=== PATIENT | female | born 1995 | race Caucasian/White ===

== ENCOUNTER 2017-04-08 12:09 | Emergency (ER) | payer OTHER, SELFPAY ==
[2017-04-08 12:30] VITALS: BP 118/59; PULSE 94; RESP 20; TEMP 36.9; O2SAT 99; BMI 20.1
[2017-04-08 12:51] LABS: Apearance,Urine Cloudy (Clear); Color,Urine Yellow (Yellow); PH,Urine 5.5 (5.0-8.5); Specific Gravity, Urine >= 1.030 (1.005-1.030)
[2017-04-08 12:52] LABS: Bilirubin,Urine Negative (Negative); Blood, Urine 1+ (Negative); Glucose,Urine (UA) Negative (Negative); Ketones,Urine Negative (Negative); Protein,Urine 2+ (Negative); UTC Leukocyte Esterase,Urine 1+ (Negative); UTC Nitrate,Urine Negative (Negative); Urobilinogen,Urine 0.2 EU/dl (0.2)
--- NOTE | 2017-04-08 13:00 | HMH.EDUTC ---
[facility] [place] Clinical Impression: Dysuria, History of sexually transmitted disease Disposition: Home, Self-Care Condition on Discharge: Good Instructions: Informing Partners of STI Patients Reduces Ongoing and Recurrent Sexually T, DI for Chlamydia, DI for Urinary Tract Infection (UTI) Additional Instructions: * increase fluids, Water and NOT soda or tea * Start antibiotic for UTI immediately and be sure to take as ordered for the FULL length of time although you should start to see improvement over the next 48 hours. * We administered the necessary antibiotics for possibly sexually transmitted diseases * pyridium as needed. Remember this will turn your urine ORANGE, this is normal but will stain whatever it gets on. this includes tears and contacts. Try not to wear contacts due to risk of staining orange. * You should not need the pyridium longer than 48 hours. If so, follow up with primary care to review urine culture and ensure antibiotic is adequate * Be SURE to follow up anytime for new or worsening symptoms, AND in 48-72 hours for urine culture results AND in 10-14 days to repeat UA and ensure infection resolved and blood no longer present. * Be sure to let Dr. Hall know we sent urine culture so they can request records and ensure you are on the appropriate antibiotic if you are not getting better or getting worse!!! * Avoid sex for 7 days to prevent reinfection Notify any partners within the last 60 days and they should all be tested/treated * Rescreen in 3 months Prescriptions: Nitrofurantoin Monohyd/M-Cryst [Macrobid 100 mg Capsule] 100 mg PO BID #20 cap Referrals: Nile Hall MD [Staff Physician] - (Follow up with Dr. Hall as we discussed. In 48-72 hours for culture results AND in 5-7 days for STD urine test results AND immediately for new or worsening symptoms. ) Time of Disposition: 14:21 Medical Decision Making Vital Signs: 04/08/17 12:30 04/08/17 14:25 Temperature 98.4 F 98.4 F Temperature Source Temporal Artery Scan Pulse Rate 94 H Pulse Rate [Radial] 94 H Respiratory Rate 20 20 Blood Pressure 118/59 Blood Pressure [Right Arm] 118/59 Blood Pressure Mean [Right Arm] 78 Blood Pressure Source [Right Arm] Automatic Cuff Blood Pressure Position [Right Arm] Sitting 02 Sat by Pulse Oximetry 99 Oxygen Delivery Method Room Air - Lab Data Lab results reviewed: Yes: I reviewed the patient's lab results. Lab Results 04/08/17 12:40: Urine Color Yellow, Urine Appearance Cloudy, Urine pH 5.5, Ur Specific [place] >= 1.030, Urine Protein 2+, Urine Glucose (UA) Negative, Urine Ketones Negative, Urine Blood 1+, Urine Nitrate Negative, Urine Bilirubin Negative, Urine Urobilinogen 0.2, Ur Leukocyte Esterase 1+ A Orders (Tests/Meds): ED MEDICATIONS Discontinued Medications Generic Name Dose Route Start Last Admin Trade Name Bianca PRN Reason Stop Dose Admin Azithromycin 1,000 mg 04/08/17 13:26 04/08/17 13:53 Zithromax 250mg Tablet PO 04/08/17 13:27 1,000 mg ONCE ONE Administration Protocol Ceftriaxone Sodium 1 gm 04/08/17 13:26 04/08/17 13:54 Rocephin 1gm Vial IM 04/08/17 13:27 1 gm ONCE ONE Administration Lidocaine HCl 0 ml 04/08/17 13:26 04/08/17 13:54 Lidocaine 1% 10ml Mdv IM 04/08/17 13:27 2.1 ml ONCE ONE Administration - Physician Consults Physician Consulted: Dr. Hall, HELP DESK CONSULTANT Time: 13:10 Reason -: Pt condition Comment/Response: Discussed PMHx, HPI, u/a results. Would like pt treated w/ rocephin, azithromycin and either macrobid or bactrim. Would like GC/Chlamydia urine and urine culture sent. Swabs not necessary. Additional Consult: Barrie Lira Time: 13:20 Reason -: Other (dosing recommendation) Comment/Response: Discussed PMHx, HPI, current results and discussion with Dr. Hall. Suggest 1g rocephin IM rather than 250mg, 1g azithromycin PO and then antibiotic of choice for UTI - Teofilo Inquiry Pt receiving controlled substance: No
[2017-04-08 14:25] VITALS: BP 118/59; PULSE 94; RESP 20; TEMP 36.9; O2SAT 99
[2017-04-12 06:22] LABS: Neisseria gonorrhoeae, NAA Negative (Negative)
== END 2017-04-08 14:28 | disposition home or self-care (01) ==
PROVIDERS: Emergency Provider Nurse Practitioner Family; Family Provider Family Medicine
DX: R30.0 Dysuria (principal); Z86.19 Personal history of other infectious and parasitic diseases
CPT/HCPCS: 81003; 87086; 87088; 87186; 87491; 87591; 96372; 99201

== ENCOUNTER → 2019-02-02 09:59 | Outpatient (CLI) | payer OTHER, SELFPAY ==
[2019-02-02 13:11] LABS: HCG,Quantitative 322 mIU/mL
== END ==
PROVIDERS: Visit Provider Nurse Practitioner Obstetrics & Gynecology
DX: Z34.90 Encounter for supervision of normal pregnancy, unspecified, unspecified trimester (principal)
CPT/HCPCS: 36415; 84702

== ENCOUNTER → 2019-03-08 13:17 | Outpatient (CLI) | payer OTHER, MEDICAID, SELFPAY ==
--- NOTE | 2019-03-08 13:18 | US_ITS ---
PROCEDURE: US OB TRANSVAGINAL CLINICAL INDICATION: US T/V OB Dates COMPARISON: TVP US TRANSVAGINAL PREG from 12/27/2014 FINDINGS: An intrauterine gestational sac is present with a pole with a crown-rump length of 1.91cm correlating to gestational age of 8weeks 4days. heart tones are present with an FHR of 174bpm. Yolk sac is noted. There is a small curvilinear area of decreased echogenicity deep to the gestational sac anteriorly and superiorly and could represent a small amount of subchorionic blood. Unremarkable adnexa. IMPRESSION: Live intrauterine gestation with an average ultrasound age of 8 weeks 4 days. Small amount fluid echogenicity noted at the gestational sac area which could represent a small amount subchorionic hemorrhage. Follow-up suggested to confirm resolution. Estimated due date by Ultrasound is 10/14/2019 Dictated by: Laz Drummond MD 03/08/2019 16:30 Electronically signed by Laz Drummond MD in [place] 03/08/2019 16:30
== END ==
PROVIDERS: PCP Emergency Medicine; Visit Provider Nurse Practitioner Obstetrics & Gynecology
DX: O26.841 Uterine size-date discrepancy, first trimester (principal)
CPT/HCPCS: 76817

== ENCOUNTER → 2019-04-19 11:28 | Outpatient (CLI) | payer OTHER, SELFPAY ==
[2019-04-19 12:25] LABS: Basophils % 0.3 % (0.1-2.0); Eosinophils % 0.4 % (0.1-12.0); Hematocrit 35.2 % (37.0-47.0); Lymphocytes # 1.2 K/mm3 (0.7-4.5); Lymphocytes % 14.6 % (10-50); Mean Corpuscular HGB Conc 34.2 g/dL (31.8-35.4); Mean Corpuscular Hemoglobin 29.7 pg (27.0-31.2); Mean Corpuscular Volume 87.1 fl (81-99); Mean Platelet Volume 7.9 fl (7.4-10.4); Monocytes # 0.3 K/mm3 (0.1-1.0); Monocytes % 3.5 % (1.7-9.3); Neutrophils # 6.4 K/mm3 (1.8-7.8); Neutrophils % 81.2 % (37.0-80.0); Platelet Count 252 K/mm3 (142-424); Red Blood Count 4.04 M/mm3 (4.20-5.40); Red Cell Distribution Width 14.1 % (11.5-17.5); White Blood Count 7.9 K/mm3 (4.8-10.8)
[2019-04-20 07:10] LABS: HIV Screen 4th Generation wRfx Non Reactive (Non Reactive)
[2019-04-20 10:51] LABS: Hepatitis B Surface Antigen Negative (Negative); Hepatitis C Antibody <0.1 s/co ratio (0.0-0.9); Rapid Plasma Reagin Ab Titer Non Reactive (NonRea<1:1); Rubella Antibodies, IgG <0.90 index (Immune >0.99)
== END ==
PROVIDERS: Visit Provider Nurse Practitioner Obstetrics & Gynecology
DX: Z34.90 Encounter for supervision of normal pregnancy, unspecified, unspecified trimester (principal)
CPT/HCPCS: 36415; 85025; 86592; 86703; 86762; 86850; 87340; 87380; G0432

== ENCOUNTER → 2019-05-24 08:21 | Outpatient (CLI) | payer OTHER, SELFPAY ==
--- NOTE | 2019-05-24 08:23 | US_ITS ---
PROCEDURE: US OB /MATERNAL DETAIL CLINICAL INDICATION: 20 wk gestation Anatomy exam COMPARISON: US OB TRANSVAGINAL from 03/08/2019 FINDINGS: There is a single live fetus present which is in the cephalic presentation. heart body motion noted. The placenta is anterior and grade 1. Cervix is closed measuring 3 cm transabdominal. Complete survey performed and was unremarkable on the submitted images as in PACS. No discrete anomalies identified on survey imaging by technologist. Active fetus. Three-vessel cord with satisfactory umbilical cord insertion. 4- chamber heart noted. Survey of brain & ventricles Unremarkable. Face and neck survey unremarkable. Diaphragm and chest views unremarkable. Abdomen: Both kidneys noted and unremarkable. Stomach noted and satisfactory. Spine: Survey of the spine satisfactory with no anomalies identified nor imaged. Both arms and legs noted. Amniotic Fluid: Adequate. Maternal adnexa: No significant findings. Measurements: Average ultrasound age 19weeks 1day. Gestational Age 19 weeks 4 days Estimated due date by ultrasound age 0810/17/2019. Estimated weight 290g BPD = 18weeks 6days OFD = 19 weeks 5 days HC = 18weeks 4days AC = 20weeks 1day FL = 19weeks Growth Percentile= 35% Heart Rate = 132bpm Cerebellum = 19weeks 3days Humerus = 19weeks 6days HC/AC is 1.06 CI is 0.74 FL/BPD is 0.69 FL/AC is 0.2 IMPRESSION: There is a single live fetus in cephalic presentation with an average ultrasound age 19 weeks 1 day with no obvious anomalies. Please see above for detail Dictated by: Laz Drummond MD 05/24/2019 14:29 Electronically signed by Laz Drummond MD in [place] 05/24/2019 14:29
== END ==
PROVIDERS: PCP Emergency Medicine; Visit Provider Nurse Practitioner Obstetrics & Gynecology
DX: Z36.0 Encounter for antenatal screening for chromosomal anomalies (principal)
CPT/HCPCS: 76811

== ENCOUNTER → 2019-07-11 11:29 | Outpatient (CLI) | payer OTHER, SELFPAY ==
[2019-07-11 12:10] LABS: Glucose,Fasting 91 mg/dl (74-100)
[2019-07-11 14:28] LABS: Glucose 1 Hour 131 mg/dL (74-100)
== END ==
PROVIDERS: Visit Provider Nurse Practitioner Obstetrics & Gynecology
DX: Z34.90 Encounter for supervision of normal pregnancy, unspecified, unspecified trimester (principal)
CPT/HCPCS: 36415; 82951

== ENCOUNTER 2019-07-20 19:30 | Outpatient (CLI) | payer OTHER, SELFPAY ==
[2019-07-20 19:54] VITALS: BP 111/67; PULSE 104; RESP 18; TEMP 36.8; O2SAT 99; BMI 21.4
[2019-07-20 20:41] LABS: Microscopic, Urine URINE MICROSCOPIC (MICROSCOPIC)
[2019-07-20 20:45] LABS: Appearance,Urine SL CLOUDY (Clear); Bilirubin,Urine Negative (Negative); Blood, Urine TRACE-L (Negative); Color,Urine YELLOW (Yellow); Glucose,Urine (UA) Negative (Negative); Ketones,Urine Negative (Negative); Leukocyte Esterase,Urine 3+ (Negative); Nitrate,Urine Negative (Negative); Protein,Urine Negative (Negative)
[2019-07-20 20:48] LABS: Squamous Epithelial Cell,Urine 20-50 #/hpf (0-5); WBC,Urine 50-100 #/hpf (0-3)
[2019-07-20 20:54] LABS: Barbiturates Screen,Urine Negative ng/ml (<200)
[2019-07-20 20:55] LABS: Benzodiazepines Screen,Urine Negative ng/ml (<200)
[2019-07-20 20:56] LABS: Amphetamine/Metha Screen,Urine Negative ng/ml (<1000); Cannabinoid Screen,Urine Negative ng/ml (<50)
[2019-07-20 20:57] LABS: Cocaine Screen,Urine Negative ng/ml (<300)
[2019-07-20 20:58] LABS: Methadone Screen,Urine Negative ng/ml (<300); Opiate Screen,Urine Negative ng/ml (<300)
[2019-07-20 20:59] LABS: Phencyclidine Screen,Urine Negative ng/ml (<25)
[2019-07-20 21:02] LABS: Fetal Membrane Rupture (Rapid) Negative (Negative)
== END 2019-07-20 21:15 | disposition home or self-care (01) ==
LOC: OBOUT 19:34 → OB 19:36
PROVIDERS: PCP Nurse Practitioner Obstetrics & Gynecology; Visit Provider Obstetrics & Gynecology
DX: O47.03 False labor before 37 completed weeks of gestation, third trimester (principal); Z3A.28 28 weeks gestation of pregnancy
CPT/HCPCS: 59025; 80305; 81001; 84112; 87086; G0463

== ENCOUNTER 2019-09-07 00:31 | Outpatient (CLI) | payer OTHER, SELFPAY ==
[2019-09-07 00:44] VITALS: BMI 24.1
[2019-09-07 00:51] LABS: Appearance,Urine CLEAR (Clear); Bilirubin,Urine Negative (Negative); Blood, Urine Negative (Negative); Color,Urine DK YELLOW (Yellow); Glucose,Urine (UA) Negative (Negative); Ketones,Urine TRACE (Negative); Leukocyte Esterase,Urine TRACE (Negative); Microscopic, Urine URINE MICROSCOPIC (MICROSCOPIC); Nitrate,Urine Negative (Negative); Protein,Urine TRACE (Negative); Specific Gravity, Urine 1.025 (1.005-1.030); Urobilinogen,Urine >=8.0 EU/dl (0.2)
[2019-09-07 00:56] VITALS: BP 124/70; PULSE 86; RESP 18; TEMP 36.9; O2SAT 98; BMI 24.1
[2019-09-07 00:58] LABS: Bacteria,Urine 1+ /lpf; Mucus,Urine 1+ /lpf
[2019-09-07 02:06] LABS: Amphetamine/Metha Screen,Urine Negative ng/ml (<1000)
[2019-09-07 02:07] LABS: Barbiturates Screen,Urine Negative ng/ml (<200)
[2019-09-07 02:08] LABS: Benzodiazepines Screen,Urine Negative ng/ml (<200)
[2019-09-07 02:09] LABS: Cannabinoid Screen,Urine Negative ng/ml (<50)
[2019-09-07 02:10] LABS: Cocaine Screen,Urine Negative ng/ml (<300); Methadone Screen,Urine Negative ng/ml (<300)
[2019-09-07 02:11] LABS: Opiate Screen,Urine Negative ng/ml (<300)
[2019-09-07 02:12] LABS: Phencyclidine Screen,Urine Negative ng/ml (<25)
== END 2019-09-07 02:09 | disposition home or self-care (01) ==
LOC: OBOUT 00:33 → OB 00:34
PROVIDERS: PCP Emergency Medicine; Referring Provider Nurse Practitioner Obstetrics & Gynecology; Visit Provider Obstetrics & Gynecology
DX: O26.893 Other specified pregnancy related conditions, third trimester (principal); Z3A.35 35 weeks gestation of pregnancy; R60.0 Localized edema; R20.0 Anesthesia of skin
CPT/HCPCS: 59025; 80305; 81001; G0463

== ENCOUNTER 2019-09-10 13:37 | Outpatient (CLI) | payer OTHER, SELFPAY ==
[2019-09-10 13:45] VITALS: BP 116/74; PULSE 90; RESP 17; TEMP 36.9; O2SAT 99; BMI 24.7
[2019-09-10 13:54] VITALS: BMI 24.7
[2019-09-10 14:20] LABS: Microscopic, Urine URINE MICROSCOPIC (MICROSCOPIC)
[2019-09-10 14:27] LABS: Appearance,Urine CLEAR (Clear); Blood, Urine Negative (Negative); Color,Urine YELLOW (Yellow); Glucose,Urine (UA) Negative (Negative); Ketones,Urine 1+ (Negative); Leukocyte Esterase,Urine TRACE (Negative); Nitrate,Urine Negative (Negative); Protein,Urine TRACE (Negative)
[2019-09-10 14:41] LABS: Opiate Screen,Urine Negative ng/ml (<300)
[2019-09-10 14:42] LABS: Phencyclidine Screen,Urine Negative ng/ml (<25)
[2019-09-10 14:45] LABS: Amphetamine/Metha Screen,Urine Negative ng/ml (<1000)
[2019-09-10 14:46] LABS: Barbiturates Screen,Urine Negative ng/ml (<200); Benzodiazepines Screen,Urine Negative ng/ml (<200)
[2019-09-10 14:47] LABS: Bilirubin,Urine Negative (Negative); Cannabinoid Screen,Urine Negative ng/ml (<50); Cocaine Screen,Urine Negative ng/ml (<300)
[2019-09-10 14:48] LABS: Methadone Screen,Urine Negative ng/ml (<300)
[2019-09-10 14:58] LABS: Bacteria,Urine 1+ /lpf; Squamous Epithelial Cell,Urine 50-100 #/hpf (0-5); WBC,Urine Occasional #/hpf (0-3)
== END 2019-09-10 17:05 | disposition home or self-care (01) ==
LOC: OBOUT 13:41 → OB 13:45
PROVIDERS: PCP Emergency Medicine; Visit Provider Nurse Practitioner Obstetrics & Gynecology
DX: O47.03 False labor before 37 completed weeks of gestation, third trimester (principal); Z3A.35 35 weeks gestation of pregnancy
CPT/HCPCS: 59025; 80305; 81001; 96360; 96361; 96372

== ENCOUNTER 2019-09-14 16:34 | Outpatient (CLI) | payer OTHER, SELFPAY ==
[2019-09-14 16:40] VITALS: BMI 25.4
[2019-09-14 16:59] LABS: Microscopic, Urine URINE MICROSCOPIC (MICROSCOPIC)
[2019-09-14 17:00] LABS: Appearance,Urine CLEAR (Clear); Blood, Urine Negative (Negative); Color,Urine DK YELLOW (Yellow); Glucose,Urine (UA) Negative (Negative); Ketones,Urine 2+ (Negative); Leukocyte Esterase,Urine 1+ (Negative); Nitrate,Urine Negative (Negative); Protein,Urine TRACE (Negative); Specific Gravity, Urine >= 1.030 (1.005-1.030); Urobilinogen,Urine >=8.0 EU/dl (0.2)
[2019-09-14 17:01] LABS: Bilirubin,Urine Negative (Negative)
[2019-09-14 17:06] VITALS: BP 133/83; PULSE 91; RESP 20; TEMP 36.9; O2SAT 99; BMI 25.4
[2019-09-14 17:12] LABS: Benzodiazepines Screen,Urine Negative ng/ml (<200)
[2019-09-14 17:13] LABS: Amphetamine/Metha Screen,Urine Negative ng/ml (<1000)
[2019-09-14 17:14] LABS: Barbiturates Screen,Urine Negative ng/ml (<200); Cannabinoid Screen,Urine Negative ng/ml (<50)
[2019-09-14 17:15] LABS: Cocaine Screen,Urine Negative ng/ml (<300); Methadone Screen,Urine Negative ng/ml (<300)
[2019-09-14 17:16] VITALS: BP 133/83; PULSE 91; RESP 20; TEMP 36.9; O2SAT 99
[2019-09-14 17:16] LABS: Amorphous Sediment,Urine 1+ /lpf; Opiate Screen,Urine Negative ng/ml (<300); RBC,Urine Occasional #/hpf (0-3)
[2019-09-14 17:17] LABS: Phencyclidine Screen,Urine Negative ng/ml (<25)
[2019-09-14 17:36] LABS: Fetal Membrane Rupture (Rapid) Negative (Negative)
== END 2019-09-14 18:06 | disposition home or self-care (01) ==
LOC: OBOUT 16:35 → OB 16:37
PROVIDERS: Obstetrics & Gynecology; PCP Emergency Medicine; Visit Provider Nurse Practitioner Obstetrics & Gynecology
DX: O47.03 False labor before 37 completed weeks of gestation, third trimester (principal); Z3A.36 36 weeks gestation of pregnancy; R60.0 Localized edema
CPT/HCPCS: 59025; 80305; 81001; 84112; 87086; G0463

== ENCOUNTER 2019-09-18 20:37 | Inpatient (IN) | payer OTHER, MEDICAID, SELFPAY ==
[2019-09-18 19:27] VITALS: BMI 25.9
[2019-09-18 19:37] LABS: Microscopic, Urine URINE MICROSCOPIC (MICROSCOPIC)
[2019-09-18 19:42] LABS: Appearance,Urine CLEAR (Clear); Blood, Urine Negative (Negative); Color,Urine YELLOW (Yellow); Glucose,Urine (UA) Negative (Negative); Ketones,Urine TRACE (Negative); Leukocyte Esterase,Urine Negative (Negative); Nitrate,Urine Negative (Negative); Protein,Urine 2+ (Negative); Urobilinogen,Urine >=8.0 EU/dl (0.2)
[2019-09-18 19:47] LABS: Bilirubin,Urine Negative (Negative)
[2019-09-18 19:57] LABS: Amphetamine/Metha Screen,Urine Negative ng/ml (<1000); Barbiturates Screen,Urine Negative ng/ml (<200)
[2019-09-18 19:58] LABS: Benzodiazepines Screen,Urine Negative ng/ml (<200)
[2019-09-18 19:59] LABS: Cannabinoid Screen,Urine Negative ng/ml (<50); Cocaine Screen,Urine Negative ng/ml (<300)
[2019-09-18 20:00] LABS: Methadone Screen,Urine Negative ng/ml (<300); Opiate Screen,Urine Negative ng/ml (<300)
[2019-09-18 20:01] VITALS: BP 126/71; PULSE 88; RESP 17; TEMP 37.2; O2SAT 98; BMI 25.9
[2019-09-18 20:01] LABS: Phencyclidine Screen,Urine Negative ng/ml (<25)
[2019-09-18 20:07] LABS: Fetal Membrane Rupture (Rapid) Positive (Negative)
[2019-09-18 20:34] LABS: Bacteria,Urine 1+ /lpf
[2019-09-18 20:36] LABS: Basophils % 0.3 % (0.1-2.0); Eosinophils # 0.1 K/mm3 (0.0-0.4); Eosinophils % 0.6 % (0.1-12.0); Hemoglobin 8.7 g/dL (12.2-16.2); Lymphocytes # 2.4 K/mm3 (0.7-4.5); Lymphocytes % 20.2 % (10-50); Mean Corpuscular HGB Conc 32.3 g/dL (31.8-35.4); Mean Corpuscular Volume 68.3 fl (81-99); Mean Platelet Volume 9.3 fl (7.4-10.4); Monocytes # 0.6 K/mm3 (0.1-1.0); Monocytes % 4.8 % (1.7-9.3); Platelet Count 229 K/mm3 (142-424); Red Blood Count 3.95 M/mm3 (4.20-5.40); Red Cell Distribution Width 16.8 % (11.5-17.5); White Blood Count 12.1 K/mm3 (4.8-10.8)
[2019-09-18 20:43] LABS: Chloride 104 mmol/L (98-107); Potassium 3.4 mmoL/L (3.5-5.1); Sodium 138 mmol/L (136-145)
--- NOTE | 2019-09-18 20:43 | HMH.OBAPHP ---
OB - H&P: HPI Antepartum - History of Present Illness Chief complaint: Ruptured membranes History of present illness: She is a 23-year-old 3 para 1 aborta 1 who is 36 and 5 weeks gestational age. She ruptured membranes at home at around 6:30 PM according to the patient. AmniSure was positive. She was scheduled for a repeat section. - History of Present Criteria for establishing EDC:: LMP confirmed by 1st trimester US care: good care Ultrasounds: normal 1st trimester US, normal mid trimester US Obstetrical complications: labor Medical complications: none HMH History Medical History: Reports:: Anxiety Denies:: Cancer, Diabetes Mellitus Type 1, Diabetes Mellitus Type 2, Hypertension, MRSA *Have you ever received a pneumonia vaccine?: No *Have you received a flu vaccine this season?: No Other Surgeries: Yes: Amputation: No Fractures: No - *Social History Smoking Status: Never smoker Alcohol Intake: never Substance Use Type: denies use *Occupational Status:: unemployed Housing: house *Travel in the last 8 weeks: None - Psychiatric History Pschychiatric History:: Reports:: Anxiety Family Hx:: No significant family history Para: 1 Review of Systems - Review of Systems Review of systems:: pertinent systems reviewed and negative unless documented below Meds Home Medications Medication Instructions Recorded Confirmed Type Pnv No.153/FA/Om3/Dha/Epa/Fish 2 tab PO DAILY 09/14/19 09/14/19 History [ Gummies] RX: Ferrous Sulfate 325 mg PO DAILY 09/14/19 09/14/19 History Allergies Allergy/AdvReac Type Severity Reaction Status Date / Time No Known Allergies Allergy Verified 09/04/19 09:03 OB - H&P: Exam - Physical Exam Vital signs: Temp Pulse Resp BP Pulse Ox 98.9 F 88 17 126/71 98 09/18/19 20:01 09/18/19 20:01 09/18/19 20:01 09/18/19 20:01 09/18/19 20:01 - Constitutional no acute distress - Routine HEENT Exam Head: Present: normocephalic Eye: Present: EOMI, PERRL ENT: Present: mucous membranes moist - Routine Neck Exam Present: supple, full ROM - Routine Respiratory Exam Absent: accessory muscle use (good air entry bilaterally), respiratory distress, wheezes, crackles - Routine Cardiovascular Exam Present: RRR. Absent: murmur - Routine Abdominal Exam Present: soft, normoactive bowel sounds. Absent: tenderness, distended, guarding - Routine Rectal Exam Patient deferred: visual exam, digital exam - Routine Exam Patient deferred: external exam, groin exam, perineal exam - Routine Extremities Exam Present: full ROM. Absent: cyanosis, edema - Routine Skin Exam Present: intact. Absent: cyanosis - Routine Neurological Exam Present: alert, oriented X3 - Routine Psychiatric Exam Present: normal affect OB - Results - Labs Labs: Short CBC 09/18/19 Range/Units 20:28 WBC 12.1 H (4.8-10.8) K/mm3 Hgb 8.7 L (12.2-16.2) g/dL Hct 27.0 L (37.0-47.0) % Plt Count 229 (142-424) K/mm3 Urine 09/18/19 Range/Units 19:29 Urine Color Yellow (Yellow) Urine Appearance Clear (Clear) Urine pH 7.0 (5.0-8.5) Ur Specific [place] 1.020 (1.005-1.030) Urine Protein 2+ (Negative) Urine Glucose (UA) Negative (Negative) OB - A/P Antepartum (1) premature rupture of membranes Current visit: Yes Status: Acute (2) Previous section Current visit: Yes Status: Acute (3) Delivery by section of full-term infant Current visit: Yes Status: Acute - Additional Plan Planning to breastfeed?: Yes Plan: other Additional Information:: She has come in with ruptured membranes that was confirmed with AmniSure. She is leaking copious fluid. Her cervix which is 1 cm. She was scheduled for a repeat section at 39 weeks. We will go ahead and deliver her by section this evening.
[2019-09-18 20:46] LABS: Anion Gap 15.4 mEq/L (5-15); Blood Urea Nitrogen 3 mg/dl (7-17); Calcium 8.9 mg/dl (8.4-10.2); Carbon Dioxide 22 mmol/L (22.0-30.0); Creatinine Clearance Estimated 302 mL/min (50-200); Estimated Glomerular Filt Rate 281 ml/min (>60); GFR (African American) 340 ML/MIN (>60); Glucose 83 mg/dl (74-100)
[2019-09-18 21:10] LABS: Coronavirus 19 IgG Antibody Negative (Negative); Coronavirus 19 IgM Antibody Negative (Negative)
[2019-09-18 21:54] LABS: Cord Blood PH 7.41 (7.35-7.45)
--- NOTE | 2019-09-18 22:06 | HMH.OPNOTE ---
Date of procedure: 09/18/19 Pre-op Diagnosis:: premature rupture of the membranes, previous section Post-op Diagnosis:: premature rupture of the membranes, previous section Procedure performed:: Repeat lower segment transverse section Surgeon:: Nile Hall MD Vice President Of Finance(s):: Dr. Schmitt EMBOSSING UNIT OPERATOR:: Ernst Tillman Anesthesia: spinal Estimated blood loss (mL): 1,000 Clinical Note:: She is a 23-year-old 3 para 1 aborta 1 who was 36 and 5 weeks gestational age. She has had some episodes of labor in the and she came in this evening with ruptured membranes. This was confirmed with AmniSure. She was found to be just 1 cm dilated. She also was found to be anemic with a hemoglobin of 8.7. Operative findings:: She delivered a liveborn female child at 9:34 PM in the evening of September 18, 2019. The baby had Apgars of 8 at 1 minute and 8 at 5 minutes. Ovaries and tubes appeared normal. Baby had a nuchal cord x1. Operative note:: She was taken to the operating room where spinal anesthesia was found be adequate. She was prepped and draped in normal sterile fashion in the supine position with a leftward tilt. A Morales catheter was in the bladder. A Pfannenstiel skin incision was made with knife then carried through to the underlying layer of fascia with cautery. The fascia was opened in the midline with cautery and extended laterally using Ely scissors. Richmond clamps were applied to the superior aspect of the fascial incision which was tented up and the underlying rectus muscles dissected off using cautery. The Gómez clamps were then applied to the inferior aspect of the fascial incision which in a similar fashion was tented up and the underlying rectus muscles dissected off using cautery. The rectus muscles were then in the midline, the peritoneum identified, and entered sharply with Metzenbaum scissors. This incision was then extended superiorly and inferiorly with cautery. We had good visualization of the bladder inferiorly. The bladder peritoneum was then opened in the midline and extended laterally using Metzenbaum scissors. A bladder flap was created digitally. Transverse incision was made through the uterine muscle to the amnion. This incision was then extended laterally using fingers traction. The amnion was entered sharply with knife. There was clear amniotic fluid. The 's head was then delivered atraumatically. A loose nuchal cord was then reduced. This was followed by the anterior shoulder and the rest of the 's body atraumatically. The oropharynx and nasopharynx were bulb suctioned. The infant was then handed off to Dr. Granados who assigned Apgars of 8 at 1 minute and 8 at 5 minutes. We then obtained cord blood as well as cord pH. Using gentle traction on the cord and countertraction on the fundus I was able to easily deliver the placenta intact. It had a normal three-vessel cord. The uterus was then cleared of clots and debris . The uterine incision was then closed using running 0 Vicryl suture in a locked fashion. A second layer of the same suture was used to imbricate the first layer. The bladder peritoneum was then closed using running 2-0 Vicryl suture in a locked fashion. The gutters and cul-de-sac were then cleared of clots and debris . There was a small amount of bleeding from the distal right tube and I used point cautery here to obtain hemostasis. I then elected to wrap the distal end of the right tube and Surgicel. Once again hemostasis was assured. The uterus was then returned to the abdominal cavity. The peritoneum was grasped with Lidia clamps and closed using running 2-0 Vicryl suture. The rectus muscles were then reapproximated using running 0 Vicryl suture. The fascia was closed using running #1 Vicryl suture. The subcutaneous tissues were then irrigated with warm water followed by closure Jhonny's fascia using running 2-0 Monocryl suture.
[2019-09-18 22:10] VITALS: BP 135/76; PULSE 81; RESP 16; TEMP 36.2; O2SAT 99
--- NOTE | 2019-09-18 22:13 | HMH.ANESCL ---
[facility] Anesthesia Checklist - Patient Identification Patient Identification: Arm Band, Verbal (Name & ) - Structural Data Admitted From: Home Planned Operative Procedure/s: Repeat Consent for Planned Operative Procedure(s) Verified: Yes Verified Documents: Surgical Consent, History and Physical - NPO Status Verified Time NPO: 17:00 - Chart Verification Results Verified: CBC, BMP, UA - Additional verifications Patient : Yes Anesthesia Reactions: No - Airway Assessment C-Spine Mobility Assessed: Yes TMJ Mobility Assessed: Yes Dentition: Good Dentition - Neurological Assessment Level of Consciousness: Awake, Alert, Appropriate, Follows Commands Hx Seizures: No Numbness or tingling in extremities: No - Anesthesia Plan Anesthesia Risk discussed: Yes Anesthesia Plan: Verified ASA Class: II Anesthesia Type: Spinal [facility] History I have reviewed the patient's past medical history: Yes Medical History: Reports:: Anxiety, Gastroesophageal Reflux Disease(GERD) ( induced) Denies:: Cancer, Diabetes Mellitus Type 1, Diabetes Mellitus Type 2, Hypertension, MRSA *Have you ever received a pneumonia vaccine?: No *Have you received a flu vaccine this season?: No Anesthesia experience/problems:: No prior complications Other Surgeries: Yes: Amputation: No Fractures: No - *Social History Smoking Status: Never smoker Alcohol Intake: never Substance Use Type: denies use *Occupational Status:: unemployed Housing: house *Travel in the last 8 weeks: None - Psychiatric History Pschychiatric History:: Reports:: Anxiety Family Hx:: No significant family history Para: 1
--- NOTE | 2019-09-18 22:15 | HMH.ANESI ---
[facility] Anesthesia Record Part I Intake, IV Amount: 900 Estimated blood loss (mL): 1,000 Urine output (mL): 300 Blood Products used (#): none Blood Pressure: 135/76 SaO2: 99 Pulse Rate: 81 Respiratory Rate: 16 Temperature: 97.1 F Patient is:: Awake, Stable Stable to PACU at:: 22:10 Comments:: Pt unable to ambulate lower extremities, states she feels numb, pain free
[2019-09-18 22:17] VITALS: BP 135/76; PULSE 81; RESP 16; TEMP 36.2; O2SAT 99
[2019-09-18 22:20] VITALS: BP 117/55; PULSE 78; RESP 16; O2SAT 97
[2019-09-18 22:30] VITALS: BP 129/80; PULSE 76; RESP 16; O2SAT 99
[2019-09-18 22:40] VITALS: BP 117/46; PULSE 78; RESP 16; TEMP 36.1; O2SAT 98
[2019-09-19] VITALS (22 sets, daily range): BP systolic 117–154; BP diastolic 46–90; PULSE 64–94; RESP 16–20; TEMP 36.1–36.7; O2SAT 98–100
[2019-09-19 02:09] LABS: Hematocrit 24.7 % (37.0-47.0)
[2019-09-19 02:14] LABS: Hemoglobin 7.8 g/dL (12.2-16.2)
--- NOTE | 2019-09-19 06:54 | HMH.ANESII ---
[facility] Anesthesia Record Part II Discharge Time: 22:40 Destination: Obstetric PACU nurse assessment reviewed?: Yes Patient Condition:: Good Anesthesia Complications:: None Swallowing reflex intact?: Yes Cyanosis?: No Blood Pressure: 117/46 Pulse Rate: 78 Temperature: 97.0 F Mental Status: Alert & Oriented Pain level:: 0 Nausea and/or vomitting:: None Intake, IV Amount: 0
--- NOTE | 2019-09-19 07:06 | HMH.PHAVTE ---
[facility] Pharm[facility] VTE Monitoring - Patient Demographics Admission date: 09/18/19 Report Date: 09/19/19 Time: 07:06 Allergies/Adverse Reactions: Patient Allergies No Known Allergies Allergy (Verified 09/04/19 09:03) Height: 1.57 m Weight: 64.41 kg Patient Problems: Current Active Problems (Last Updated 07/26/19 @ 08:[address] [facility]) Anemia affecting (Acute) premature rupture of membranes (Acute) Previous section (Acute) Delivery by section of full-term (Acute) - VTE Risk Labs: VTE Related Lab Results Hgb 7.8 g/dL (12.2-16.2) L* 09/19/19 01:30 Hct 24.7 % (37.0-47.0) L 09/19/19 01:30 Plt Count 229 K/mm3 (142-424) 09/18/19 20:28 BUN 3 mg/dl (7-17) L 09/18/19 20:28 Creatinine 0.30 mg/dl (0.52-1.04) L 09/18/19 20:28 Estimated Creat Clear 302 mL/min (50-200) H 09/18/19 20:28 - Prophylaxis VTE Prophylaxis Ordered?: Yes Types of VTE Prophylaxis: IPCS Thigh High Location of Applied Device: Bilateral Lower Extremeties - VTE Diagnosis Confirmed Treatment or plan recommended: Continue Current Treatment
--- NOTE | 2019-09-19 08:32 | HMH.ACPN2 ---
Internal Medicine - PN: Subj *Date: 09/19/19 *Time: 08:32 Interval history: She is doing well this morning she is eating and drinking and ambulating. Her pain is well controlled. She dropped her hemoglobin from 8.7-7.8 overnight and we had previously decided to transfuse her 2 units of blood. She is receiving this now. She is doing well her vital signs are stable. Exam Vital signs and Labs for Last 24 Hours: Temp Pulse Resp BP Pulse Ox 98.0 F 87 18 148/77 H 100 09/19/19 08:20 09/19/19 08:20 09/19/19 08:20 09/19/19 08:20 09/19/19 08:20 Laboratory Results - last 24 hr 09/18/19 19:29: Urine Color Yellow, Urine Appearance Clear, Urine pH 7.0, Ur Specific [place] 1.020, Urine Protein 2+, Urine Glucose (UA) Negative, Urine Ketones Trace, Urine Blood Negative, Urine Nitrate Negative, Urine Bilirubin Negative, Urine Urobilinogen >=8.0, Ur Leukocyte Esterase Negative, Urine WBC 3-5, Ur Squamous Epith Cells 10-20, Urine Bacteria 1+ 09/18/19 19:29: Urine Opiates Screen Negative, Urine Methadone Screen Negative, Ur Barbituates Screen Negative, Ur Phencyclidine Scrn Negative, Ur Amphetamines Screen Negative, U Benzodiazepines Scrn Negative, Urine Cocaine Screen Negative, U Marijuana (THC) Screen Negative 09/18/19 19:38: Membrane Rupture Positive A 09/18/19 20:28: WBC 12.1 H, RBC 3.95 L, Hgb 8.7 L, Hct 27.0 L, MCV 68.3 L, MCH 22.0 L, MCHC 32.3, RDW 16.8, Plt Count 229, MPV 9.3, Neut % (Auto) 74.0, Lymph % (Auto) 20.2, Crowley % (Auto) 4.8, Eos % (Auto) 0.6, Baso % (Auto) 0.3, Neut # (Auto) 9.0 H, Lymph # (Auto) 2.4, Crowley # (Auto) 0.6, Eos # (Auto) 0.1, Baso # (Auto) 0.0 09/18/19 20:28: Sodium 138, Potassium 3.4 L, Chloride 104, Carbon Dioxide 22, Anion Gap 15.4 H, BUN 3 L, Creatinine 0.30 L, Estimated Creat Clear 302 H, Estimated GFR 281, Est GFR ( Amer) 340, Glucose 83, Calcium 8.9 09/18/19 20:28: SARS-CoV-2 IgG Ab (Rapid) Negative, SARS-CoV-2 IgM Ab (Rapid) Negative 09/18/19 20:28: Blood Type O Positive, Antibody Screen Negative, Crossmatch (AHG) See Detail 09/18/19 21:41: Cord ABG pH 7.41 09/19/19 01:30: Hgb 7.8 L*, Hct 24.7 L I & O for Last 24 hours: Intake & Output 09/16/19 09/17/19 09/18/19 09/19/19 11:59 11:59 11:59 11:59 Intake Total 1400 / 1400 Balance 1400 / 1400 Weight 142 lb - Constitutional no acute distress - *Routine HEENT Exam Head: Present: normocephalic Eye: Present: EOMI, PERRL ENT: Present: mucous membranes moist Assessment and Plan (1) premature rupture of membranes Current visit: Yes Status: Acute Category: Medical Code(s): O42.919 - premature rupture of membranes, unspecified as to length of time between rupture and onset of labor, unspecified trimester (2) Previous section Current visit: Yes Status: Acute Category: Surgical Code(s): Z98.891 - History of uterine scar from previous surgery (3) Delivery by section of full-term infant Current visit: Yes Status: Acute Category: Medical Code(s): O82 - Encounter for delivery without indication (4) Anemia affecting Current visit: Yes Status: Acute Category: Medical Code(s): O99.019 - Anemia complicating , unspecified trimester - Assessment and plan all Dx Assessment and Plan for all problems:: She is doing well this morning. She is currently receiving her second unit of blood. We will repeat her blood work again later this morning. We will plan to send her home in 48 hours.
[2019-09-19 11:20] LABS: Hematocrit 30.7 % (37.0-47.0)
--- NOTE | 2019-09-19 21:03 | HMH.DCSUM ---
General - General Admission date:: 09/18/19 Discharge date: 09/19/19 HPI HPI: She is a 23-year-old 3 now para 2 aborta 1 who was 36 and 5 weeks gestational age. She came in having early contractions with ruptured membranes. She is had a previous section as result of that was taken for repeat lower segment transverse section. Hospital Course Hospital Course: On the evening of September 18, 2019 she underwent a repeat lower segment transverse section. She delivered a liveborn female child at 9:34 PM in the evening of this 18 September 2019. The baby weighed 6 pounds 12 ounces and had Apgars of 8 at 1 minute and 8 at 5 minutes. She has done well and has remained afebrile with that her hospitalization. She was anemic prior to her surgery and we have given her 2 units of blood postoperatively. Her hemoglobin this afternoon is 10. She is eating and drinking and ambulating. Her baby has been transferred to because it was diagnosed with Down syndrome and an AV malformation. The baby had been tachypneic and had problems with his saturations when it was off oxygen. The patient has requested compassionate transfer to . She has been accepted by Dr. July Hay at the [facility]. She has O+ blood, she is rubella nonimmune and she has received MMR prior to discharge. Her group B streptococcus status was unknown. Her scale technician is Dr. Granados. Objective Vital signs: Temp Pulse Resp BP Pulse Ox 98.1 F 74 17 118/72 100 09/19/19 15:55 09/19/19 15:55 09/19/19 15:55 09/19/19 15:55 09/19/19 15:55 no acute distress - *Routine HEENT Exam Head: Present: normocephalic Eye: Present: EOMI, PERRL ENT: Present: mucous membranes moist Results Labs on day of discharge: Labs from last 24 hours 09/19/19 09/19/19 09/18/19 11:00 01:30 21:41 Hgb 10.0 L D 7.8 L* Hct 30.7 L 24.7 L Cord ABG pH 7.41 SARS-CoV-2 IgG Ab (Rapid) SARS-CoV-2 IgM Ab (Rapid) Blood Type Antibody Screen Crossmatch ([facility]) 09/18/19 09/18/19 20:28 20:28 Hgb Hct Cord ABG pH SARS-CoV-2 IgG Ab (Rapid) Negative SARS-CoV-2 IgM Ab (Rapid) Negative Blood Type O Positive Antibody Screen Negative Crossmatch ([facility]) See Detail DS: Diagnosis - Discharge Diagnosis (1) premature rupture of membranes Status: Acute (2) Previous section Status: Acute (3) Delivery by section of full-term Status: Acute (4) Anemia affecting Status: Acute Discharge Plan - Patient Discharge Instructions ACTIVITY: No heavy lifting DIET: continue same diet - Follow up Plan Disposition: Xfer Short-Term Hosp Home Medications: Home Medications Medication Instructions Recorded Confirmed Type Ferrous Sulfate 325 mg PO DAILY 09/14/19 09/19/19 History Pnv No.153/FA/Om3/Dha/Epa/Fish 2 tab PO DAILY 09/14/19 09/19/19 History [ Gummies] Prescriptions/Medication Reconciliation: Continued Ferrous Sulfate 325 mg PO DAILY Pnv No.153/FA/Om3/Dha/Epa/Fish [ Gummies] 2 tab PO DAILY - Problem Reconciliation Problems Reviewed?: Yes
== END 2019-09-20 00:11 | disposition short-term general hospital (02) | DRG 788 ==
LOC: OBOUT 20:37 → OB 20:37
PROVIDERS: Admitting Provider Nurse Practitioner Obstetrics & Gynecology; PCP Emergency Medicine; Visit Provider Nurse Practitioner Obstetrics & Gynecology
PROC: (CPT 59514; principal; 2019-09-18 21:00)
DX: O60.13X0 Preterm labor second trimester with preterm delivery third trimester, not applicable or unspecified (principal); Z3A.36 36 weeks gestation of pregnancy; Z37.0 Single live birth; O34.211 Maternal care for low transverse scar from previous cesarean delivery; N85.8 Other specified noninflammatory disorders of uterus; O69.81X0 Labor and delivery complicated by cord around neck, without compression, not applicable or unspecified
CPT/HCPCS: 59514; 36415; 59025; 80048; 80305; 81001; 82800; 84112; 85014; 85018; 85025; 86328; 86850; 90707; J2405; P9016

== ENCOUNTER → 2022-04-20 23:34 | Outpatient (CLI) | payer MEDICAID, SELFPAY ==
[2022-04-20 19:22] LABS: Basophils # 0.1 K/mm3 (0-0.2); Basophils % 1.1 % (0.1-2.0); Eosinophils # 0.1 K/mm3 (0.0-0.4); Eosinophils % 1.1 % (0.1-12.0); Lymphocytes # 1.9 K/mm3 (0.7-4.5); Lymphocytes % 31.8 % (10-50); Mean Corpuscular HGB Conc 33.2 g/dL (31.8-35.4); Mean Corpuscular Hemoglobin 29.2 pg (27.0-31.2); Mean Corpuscular Volume 87.9 fl (81-99); Mean Platelet Volume 8.7 fl (7.4-10.4); Monocytes # 0.3 K/mm3 (0.1-1.0); Monocytes % 4.6 % (1.7-9.3); Neutrophils # 3.6 K/mm3 (1.8-7.8); Neutrophils % 61.4 % (37.0-80.0); Platelet Count 324 K/mm3 (142-424); Red Blood Count 4.78 M/mm3 (4.20-5.40); White Blood Count 5.9 K/mm3 (4.8-10.8)
[2022-04-20 20:04] LABS: Alanine Aminotransferase 15 U/L (12-78); Albumin Level 5.2 g/dl (3.5-5.0); Albumin/Globulin Ratio 1.8 (1.1-1.8); Alkaline Phosphatase 57 U/L (38-126); Anion Gap 11.5 mEq/L (5-15); Aspartate Amino Transferase 24 U/L (14-36); Bilirubin,Total 0.6 mg/dl (0.2-1.3); Blood Urea Nitrogen 7 mg/dl (7-17); Calcium 9.5 mg/dl (8.4-10.2); Carbon Dioxide 29 mmol/L (22.0-30.0); Chloride 106 mmol/L (98-107); Chol/HDL Ratio 2.1 (1-3.5); Cholesterol 125 mg/dl (140-200); Estimated Glomerular Filt Rate 123 ml/min (>60); GFR (African American) 149 ML/MIN (>60); Globulin 2.9 g/dL (1.3-3.2); Glucose 102 mg/dl (74-100); HDL Cholesterol 59 mg/dl (40-60); Potassium 4.5 mmoL/L (3.5-5.1); Sodium 142 mmol/L (136-145); Total Protein,Serum 8.1 g/dl (6.3-8.2); Triglycerides 81 mg/dl (30-150); VLDL Cholesterol 16 mg/dL (0-40)
[2022-04-20 20:15] LABS: Direct LDL Cholesterol 56.17 mg/dL (100-129)
[2022-04-20 20:21] LABS: Free T4 (Free Thyroxine) 1.15 ng/dl (0.78-2.19)
[2022-04-20 20:22] LABS: 25-OH Vitamin D, Total 26.4 ng/mL (30-100)
[2022-04-20 20:35] LABS: Thyroid Stimulating Hormone 1.85 uIU/mL (0.465-4.68)
== END ==
PROVIDERS: PCP Emergency Medicine; Visit Provider Emergency Medicine
DX: R53.83 Other fatigue (principal); E55.9 Vitamin D deficiency, unspecified; Z79.899 Other long term (current) drug therapy
CPT/HCPCS: 80053; 80061; 82306; 84439; 84443; 85025

== ENCOUNTER → 2022-05-11 11:02 | Outpatient (CLI) | payer MEDICAID, SELFPAY ==
--- NOTE | 2022-05-11 11:03 | US_ITS ---
PROCEDURE INFORMATION: Exam: US Left Breast, Complete, Screening Exam date and time: 05/11/2022 11:14 AM Age: 26 years old Clinical indication: Screening exam; Family history of breast cancer; Additional info: Fibrocystic breast TECHNIQUE: Imaging protocol: Complete ultrasound of all four quadrants of the left breast and the retroareolar regions, including ultrasound of the axilla when performed. FINDINGS: Breast: Sonographic images of both breasts including the retroareolar regions, all 4 quadrants and the axilla do not demonstrate any solid or cystic masses. No axillary adenopathy demonstrated. IMPRESSION: No sonographic evidence of malignancy. Note reported positive family history positive family history, suggest breast risk cancer assessment, and consider annual screening mammogram starting at age 30 with annual screening MRI starting at age 25-30. Further evaluation of a palpable abnormality should be based on clinical grounds regardless of radiographic findings or lack thereof. ASSESSMENT: BI-RADS Category 1: Negative
--- NOTE | 2022-05-11 11:03 | US_ITS ---
PROCEDURE INFORMATION: Exam: US Right Breast, Complete, Screening Exam date and time: 05/11/2022 11:07 AM Age: 26 years old Clinical indication: Concern for fibrocystic changes. Family history of breast cancer reported. TECHNIQUE: Imaging protocol: Complete ultrasound of all four quadrants of the right breast and the retroareolar regions, including ultrasound of the axilla when performed. COMPARISON: No relevant prior studies available. FINDINGS: Breast: Sonographic images of both breasts including the retroareolar regions, all 4 quadrants and the axilla do not demonstrate any solid or cystic masses. No axillary adenopathy demonstrated. IMPRESSION: No sonographic evidence of malignancy. Note reported positive family history positive family history, suggest breast risk cancer assessment, and consider annual screening mammogram starting at age 30 with annual screening MRI starting at age 25-30. Further evaluation of a palpable abnormality should be based on clinical grounds regardless of radiographic findings or lack thereof. ASSESSMENT: BI-RADS Category 1: Negative
== END ==
PROVIDERS: PCP Emergency Medicine; Visit Provider Nurse Practitioner Obstetrics & Gynecology
DX: N60.11 Diffuse cystic mastopathy of right breast (principal); N60.12 Diffuse cystic mastopathy of left breast; N64.4 Mastodynia; Z80.3 Family history of malignant neoplasm of breast
CPT/HCPCS: 76641

== ENCOUNTER → 2022-07-16 08:41 | Outpatient (CLI) | payer MEDICAID, SELFPAY ==
--- NOTE | 2022-07-16 08:42 | MR_ITS ---
FINAL REPORT TECHNIQUE: Multiplanar MR without contrast CLINICAL HISTORY: headache. INTERMITTENT DIZZINESS AND BLURRED VISION FINDINGS: Diffusion sequences show no signal abnormality to indicate acute infarct. No mass, hemorrhage or edema is seen. Ventricles are normal. Major vascular flow voids are intact. IMPRESSION: Unremarkable MR of the brain without contrast Reviewed, Interpreted and Dictated by Behzad Ruiz MD Transcribed by Denita Keller Authenticated and [facility]
== END ==
LOC: RAD 08:42
PROVIDERS: PCP Emergency Medicine; Visit Provider Nurse Practitioner Family
DX: R51.9 Headache, unspecified (principal)
CPT/HCPCS: 70551

== ENCOUNTER → 2022-07-23 13:43 | Outpatient (CLI) | payer MEDICAID, SELFPAY ==
[2022-07-23 16:06] LABS: Vitamin B12 365 pg/mL (239-931)
[2022-07-23 17:12] LABS: Ferritin 41.1 ng/ml (6.24-137)
== END ==
PROVIDERS: PCP Emergency Medicine; Visit Provider Nurse Practitioner Family
DX: R51.9 Headache, unspecified (principal); E83.10 Disorder of iron metabolism, unspecified; G47.9 Sleep disorder, unspecified
CPT/HCPCS: 36415; 82607; 82728; 82746; G0399

== ENCOUNTER 2023-03-28 18:05 | Outpatient (CLI) | payer MEDICAID, SELFPAY ==
[2023-03-28 23:20] LABS: Amphetamine/Metha Screen,Urine Negative ng/ml (<1000); Barbiturates Screen,Urine Negative ng/ml (<200); Benzodiazepines Screen,Urine Negative ng/ml (<200); Cannabinoid Screen,Urine Negative ng/ml (<50); Cocaine Screen,Urine Negative ng/ml (<300); Methadone Screen,Urine Negative ng/ml (<300); Opiate Screen,Urine Negative ng/ml (<300); Phencyclidine Screen,Urine Negative ng/ml (<25)
== END 2023-03-28 23:59 ==
LOC: LAB.DROPOF 18:06
PROVIDERS: Visit Provider Family Medicine
DX: Z79.899 Other long term (current) drug therapy (principal)
CPT/HCPCS: 80307

== ENCOUNTER 2023-04-27 22:00 | Outpatient (CLI) | payer MEDICAID, SELFPAY ==
[2023-04-27 18:26] LABS: Basophils % 0.4 % (0.1-2.0); Eosinophils % 0.5 % (0.1-12.0); Hematocrit 41.3 % (37.0-47.0); Hemoglobin 13.4 g/dL (12.2-16.2); Lymphocytes # 1.8 K/mm3 (0.7-4.5); Lymphocytes % 27.6 % (10-50); Mean Corpuscular HGB Conc 32.4 g/dL (31.8-35.4); Mean Corpuscular Hemoglobin 30.2 pg (27.0-31.2); Mean Corpuscular Volume 93.1 fl (81-99); Mean Platelet Volume 9.6 fl (7.4-10.4); Monocytes # 0.4 K/mm3 (0.1-1.0); Monocytes % 5.9 % (1.7-9.3); Neutrophils # 4.2 K/mm3 (1.8-7.8); Neutrophils % 65.7 % (37.0-80.0); Platelet Count 252 K/mm3 (142-424); Red Blood Count 4.43 M/mm3 (4.20-5.40); White Blood Count 6.4 K/mm3 (4.8-10.8)
[2023-04-27 19:06] LABS: Alanine Aminotransferase 12 U/L (12-78); Albumin Level 4.5 g/dl (3.5-5.0); Albumin/Globulin Ratio 1.8 (1.1-1.8); Alkaline Phosphatase 51 U/L (38-126); Anion Gap 12.3 mEq/L (5-15); Aspartate Amino Transferase 24 U/L (14-36); Bilirubin,Total 0.8 mg/dl (0.2-1.3); Blood Urea Nitrogen 4 mg/dl (7-17); Calcium 9.3 mg/dl (8.4-10.2); Carbon Dioxide 26 mmol/L (22.0-30.0); Chloride 105 mmol/L (98-107); Chol/HDL Ratio 2.6 (1-3.5); Cholesterol 120 mg/dl (140-200); Estimated Glomerular Filt Rate 122 ml/min (>60); GFR (African American) 147 ML/MIN (>60); Globulin 2.5 g/dL (1.3-3.2); Glucose 88 mg/dl (74-100); HDL Cholesterol 47 mg/dl (40-60); Potassium 4.3 mmoL/L (3.5-5.1); Sodium 139 mmol/L (136-145); Triglycerides 37 mg/dl (30-150); VLDL Cholesterol 7 mg/dL (0-40)
[2023-04-27 19:17] LABS: Direct LDL Cholesterol 58.07 mg/dL (100-129)
[2023-04-27 19:34] LABS: 25-OH Vitamin D, Total 98.5 ng/mL (30-100)
[2023-04-27 19:45] LABS: Thyroid Stimulating Hormone 1.27 uIU/mL (0.465-4.68)
[2023-04-27 20:04] LABS: Vitamin B12 527 pg/mL (239-931)
[2023-04-27 20:18] LABS: Iron 105 ug/dL (37-170)
[2023-04-27 20:28] LABS: Total Iron Binding Capacity 262 ug/dL (265-497)
== END 2023-04-27 23:59 ==
LOC: LAB.DROPOF 22:00
PROVIDERS: PCP Family Medicine; Visit Provider Family Medicine
DX: E83.10 Disorder of iron metabolism, unspecified (principal); R53.83 Other fatigue
CPT/HCPCS: 80053; 80061; 82306; 82607; 83540; 83550; 84443; 85025

== ENCOUNTER 2023-08-09 14:15 | Outpatient (POV) | payer MEDICAID, SELFPAY | END 2023-08-09 23:59 | disposition home or self-care (01) | LOC: SC 14:15 | PROVIDERS: PCP Family Medicine; Visit Provider Specialist/Technologist | DX: Z00.00 Encounter for general adult medical examination without abnormal findings (principal) ==

== ENCOUNTER 2024-03-08 14:53 | Outpatient (POV) | payer MEDICAID, SELFPAY | END 2024-03-08 23:59 | disposition home or self-care (01) | LOC: SC 14:54 | PROVIDERS: Visit Provider Specialist/Technologist | DX: Z00.00 Encounter for general adult medical examination without abnormal findings (principal) ==

== ENCOUNTER 2024-09-15 14:22 | Outpatient (CLI) | payer MEDICAID, SELFPAY ==
--- OUTSIDE RECORDS SUMMARY | 2024-09-17 11:15 | XMS_ITS | Clinical Summary ---
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
== END 2024-09-15 23:59 | disposition home or self-care (01) ==
LOC: LAB.DROPOF 09-17 11:14
PROVIDERS: PCP Student in an Organized Health Care Education/Training Program; Visit Provider Student in an Organized Health Care Education/Training Program
DX: R35.0 Frequency of micturition (principal)
CPT/HCPCS: 87086; 87088; 87186

== ENCOUNTER 2025-01-06 08:59 | Emergency (ER) | payer MEDICAID, SELFPAY ==
[2025-01-06] VITALS (7 sets, daily range): BP systolic 96–133; BP diastolic 60–82; PULSE 56–89; RESP 16–18; TEMP 36.8–36.9; O2SAT 99–100; BMI 21.9
--- OUTSIDE RECORDS SUMMARY | 2025-01-06 09:06 | XMS_ITS | Clinical Summary ---
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 Not on file 01/2023 Does Anyone Keep You from Co ntacting Others or Doint Things Outside the Home? Not on file 12/15/2022 Physical Sign of Abuse Present Not on file 1 Housing Stability Answer Date Recorded Current Living Arrangements Not on file 12/05 Potentially Unsafe Housing Conditions Not on antonio e 12/15/2022 Family and Community Support Answer Bhavesh e Recorded Help with Day-to-Day Activities Not on file 12/15/2022 Lonely or Isolated Not on file 12/15/2022 Employment Answer Date Recorded Do you want help finding or keeping work or a sudha b? Not on file 12/15/2022 Disabilities Answer Date Recorded Concentrating, Remembering, or Making Decisions Difficulty Not on file 12/15/2022 Doing Errands Independently Difficulty Not on fi le 12/15/2022 Education Answer Date Recorded Help with school or training? Not on file Preferred Language Not on file 12/15/2022 Comments No Sex and Gender Information Value Date Recorded Sex Assigned at Not on file Legal Sex Female 9:16 AM EDT Gender Identity Not on file Sexual Orientation Not on file Last Filed Vital Signs Vital Sign Reading Time Taken Comments Blood Pressure 114/68 03/03/2017 12:19 PM EST Pulse 70 03/03/2017 12:19 PM EST Temperature - - Respiratory Rate 18 03/03/2017 12:19 PM EST Oxygen Saturation - - Inhaled Oxygen Concentration - - Weight 52.6 kg (116 lb) 03/03/2017 12:19 PM EST Height 157.5 cm (5' 2 ) 03/03/2017 12:19 PM EST Body Mass Index 21.22 03/03/2017 12:19 PM EST Plan of Treatment Health Maintenance Due Date Last Done Comments Annual Gynecologic Pelvic an d Breast Exam 1997 TDAP/TD VACCINES (1 - Tdap) 2016 ANNUAL PHYSICAL 03/03/2017 HEPATITIS C SCREENING 03/03/2017 INFLUENZA VACCINE 10/05/2024 Pneumococcal Vaccine 0-49 Aged Out No longer eligible based on patient's age to complete this topic Insurance [facility] Care Teams Manager Of Construction Relationship Specialty Start Date End Date Provider, No Known [facility] [place] [address] PCP - General 11/29/14
--- NOTE | 2025-01-06 09:21 | CT_ITS ---
PROCEDURE INFORMATION: Exam: CT Head Without Contrast Exam date and time: 01/06/2025 11:32 AM Age: 29 years old Clinical indication: Pain; Headache; Additional info: Intractible JUAN TECHNIQUE: Imaging protocol: Computed tomography of the head without contrast. Radiation optimization: All CT scans at this facility use at least one of these dose optimization techniques: automated exposure control; mA and/or kV adjustment per patient size (includes targeted exams where dose is matched to clinical indication); or iterative reconstruction. COMPARISON: MR HEAD/BRAIN WO CON 07/16/2022 9:12 AM FINDINGS: Brain: No CT evidence of acute infarct, hemorrhage or mass. No definite cerebral edema. The crowding of the cortical sulci is likely reflective of the patient's age rather than pathology. The distinction of the cortical rondon and deep white matter is preserved in both hemispheres. If clinical concern persists, consider MRI of the brain without gadolinium. Cerebral ventricles: No ventriculomegaly. Paranasal sinuses: Tiny mucous retention cyst in the left maxillary sinus. The paranasal sinuses are otherwise unremarkable. No fluid levels. Mastoid air cells: Visualized mastoid air cells are well aerated. Bones: Unremarkable. No acute fracture. Soft tissues: Unremarkable. IMPRESSION: No CT evidence of acute intracranial pathology. Please see discussion above.
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
--- NOTE | 2025-01-06 09:36 | ECG_ITS ---
APPROVED REPORT Exam: Resting ECG HR:73 bpm ECG Measurements Heart Rate 73 AXES WV 148 P 60 QRSd 88 QRS 75 QT 379 T 55 QTc 405 Conclusion SINUS RHYTHM NORMAL ECG Electronically signed by : KRISTOPHER STEVEN, 01/07/2025 00:53:36
[2025-01-06] MEDS: LACTATED RINGERS 1000ML 1,000 ML 999 ML IV (09:49)
[2025-01-06] MEDS: KETOROLAC 15MG/ML VIAL 15 MG IV (09:54)
[2025-01-06] MEDS: DEXAMETHASONE 4MG/ML 1ML VIAL 8 MG IV (09:55)
[2025-01-06] MEDS: droPERidol 5MG/2ML VIAL 2.5 MG IV (09:58)
[2025-01-06 10:18] LABS: Hematocrit 38.7 % (37.0-47.0); Hemoglobin 13.3 g/dL (12.2-16.2); Immature Granulocytes % 0.3 %; Mean Corpuscular HGB Conc 34.4 g/dL (31.8-35.4); Mean Corpuscular Hemoglobin 29.6 pg (27.0-31.2); Mean Corpuscular Volume 86.0 fl (81-99); Nucleated Red Blood Cells % 0 %; Platelet Count 273 K/mm3 (142-424); Red Blood Count 4.50 M/mm3 (4.20-5.40); Red Cell Distribution Width-SD 37.0 fL; White Blood Count 5.8 K/mm3 (4.8-10.8)
[2025-01-06 10:21] LABS: HCG Qualitative, Serum Negative (Negative)
[2025-01-06 11:20] LABS: Alanine Aminotransferase 14 U/L (12-78); Albumin Level 4.1 g/dl (3.5-5.0); Albumin/Globulin Ratio 1.1 (1.1-1.8); Alkaline Phosphatase 59 U/L (38-126); Anion Gap 10.6 mEq/L (5-15); Aspartate Amino Transferase 23 U/L (14-36); Bilirubin,Total 0.9 mg/dl (0.2-1.3); Blood Urea Nitrogen 7 mg/dl (7-17); Calcium 8.9 mg/dl (8.4-10.2); Carbon Dioxide 27 mmol/L (22.0-30.0); Chloride 102 mmol/L (98-107); Creatinine Clearance Estimated 121 mL/min (50-200); Creatinine,Serum 0.60 mg/dl (0.52-1.04); Estimated Glomerular Filt Rate 120 ml/min (>60); GFR (African American) 145 ML/MIN (>60); Globulin 3.6 g/dL (1.3-3.2); Glucose 100 mg/dl (74-100); Potassium 3.6 mmoL/L (3.5-5.1); Sodium 136 mmol/L (136-145); Total Protein,Serum 7.7 g/dl (6.3-8.2)
[2025-01-06 11:33] LABS: Hepatitis C Ab Qual. W/ RFX NEGATIVE (Negative)
== END 2025-01-06 12:02 | disposition home or self-care (01) ==
PROVIDERS: Emergency Provider Student in an Organized Health Care Education/Training Program; PCP Nurse Practitioner Family
DX: G44.209 Tension-type headache, unspecified, not intractable (principal); M54.2 Cervicalgia
CPT/HCPCS: 70450; 80053; 84703; 85025; 86803; 87389; 93005; 96361; 96374; 96375; 99284; 99285; J1100; J1200; J1790; J1885; J7120